=== PATIENT | female | born 2000 | race Caucasian/White ===

== ENCOUNTER → 2025-01-07 | Outpatient (CLI) | payer MEDICAID, SELFPAY ==
--- NOTE | 2025-01-07 19:10 | MRI_ITS ---
EXAM: Noncontrast MRI of the left knee. CLINICAL HISTORY: History of fall 2022. Left knee pain and instability. Prior ACL reconstruction 2019 and meniscal repair 2017. COMPARISON: No prior studies are available. TECHNIQUE: Multi planar, multisequence MRI images of the left knee were obtained without IV contrast. FINDINGS: The patellar ligament and included distal quadriceps tendon are intact. Fine bony detail is limited on this study. There is magnetic susceptibility artifact from ACL graft anchor in the proximal tibia. No acute fracture or dislocation of the left knee. No sizeable joint effusion. The collateral and posterior cruciate ligaments are intact. Evaluation of the ACL graft is limited on this study. There do appear to be some intact fibers of the ACL graft. No loose intra-articular body. No focal high-grade chondral defect or osteochondral lesion. No evidence of transient patellar dislocation. The patellar retinacula and popliteus muscle/tendon are intact. No soft tissue mass or drainable fluid collection of the left knee. No definite discrete meniscal tear. No flipped meniscal fragment. MRI/Lower Ext Joint Only (Routine) IMPRESSION: No acute bony abnormality of the left knee. No sizeable joint effusion. There appear to be some intact fibers of the ACL graft, although evaluation is limited on this examination. The remaining major ligamentous structures appear intact. No discrete meniscal tear or flipped meniscal fragment. No focal high-grade chondral defect or osteochondral lesion. [facility]
== END | disposition home or self-care (01) ==
PROVIDERS: PCP Nurse Practitioner Family; Referring Provider Nurse Practitioner Family; Visit Provider Nurse Practitioner Family
DX: M23.52 Chronic instability of knee, left knee (principal)
CPT/HCPCS: 73721

== ENCOUNTER 2025-03-13 13:00 | Outpatient (RCR) | payer MEDICAID, SELFPAY ==
--- NOTE | 2025-01-23 18:05 | HP.PTEVAL ---
Patient's Visit Information Visit Information Visit Information: FEDERICO MCRAE is a 24 year old F referred to Physical Therapy by REGIS Nielson with a diagnosis of INSTABILITY ,LEFT KNEE. Date of Evaluation: 01/23/25 Physical Therapist: Sriram Bradley, PT, Cert MDT, OCS Visit Plan Frequency: 2x /Week Duration: 4 Weeks Plan: LATEX ALLERGY: PRECAUTION PT INTERVENTIONS STRENGTHENING QUADS/HAMS/HIP ,CLOSED CHAIN QUADS,PROPRIOCEPTION ,FUNCTIONAL STRENGTHENING AND MODALITIES Subjective Subjective: This 24 y/o female presents to physical therapy with left knee instability. Patient has has h/o ACL reconstruction Oct 05 2020 .Prior to arthroscopy meniscectomy Most recently pain worse 1 year later and progressively worse over next 5 years . Patient reports knee feels as though shifting when walking. Pain located global anterior posterior.Patient has MRI but unable to read due to anchors . Patient seen INS[employer]OR [employer] recommended PT and recommend DR Ruiz after PT started . Medication naproxen .Aggravating factors squatting ,pivoting ,stairs ,kneeling . Alleviating rest meds. Denies paresthesia/tingling . Sleeping good. Prior PT ~ 4 years ago . No exercising. Patient condition affects QOL and function /work demands. 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 Pain Right: Pain Intensity (Out of 10): 5 Pain Intensity Range: 9 and 10 Right Knee: Pain Intensity (Out of 10): 5 Pain Intensity Range: 10 Objective Objective: POSTURE: knee valgus ,genu recurvatum GAIT: reciprocal pattern PALPATION: tender medial joint line ,tender patella NEURO: denies paresthesia/tingling AROM: 0-125 Degrees supine knee flexion MMT: ( peak force) left quads 12.6 ,hamstrings 11.2 ,hip abduction 13.7 ,hip flexion 18.3 ,ankle 4/5 PROPRIOCEPTION: intact FLEXABILITY: HAMSTRINGS WFL +Squatting pain Special Tests L Knee Evan - Meniscus: Negative L Knee Anterior Drawer - ACL: Negative L Knee Posterior Drawer - PCL: Negative L Knee Posterior Sag - PCL: Negative L Knee Valgus - MCL: Negative L Knee Varus - LCL: Negative L Knee Patellar Apprehension - PFS: Positive L Knee Patellar Grind - PFS: Positive Balance/Special Test Scores Lower Extremity Functional Score: 43 Goals Goal 1:: Patient to be I with HEP for knee Goal Time Frame: 4-6 Weeks Goal 2:: Patient to improve peak force quads/hams/hip by 10# strength to improve gait Goal Time Frame: 4-6 Weeks Goal 3:: Patient to improve LFES score by 5 points to improve QOL Goal Time Frame: 4-6 Weeks Goal 4:: Patient to demonstrate 50% improvement with less pain and improved function Goal Time Frame: 4-6 Weeks Goal 5:: Patient be able to perform ADLS and housework tasks squatting stairs min limitations Goal Time Frame: 4-6 Weeks Rehabilitation Potential Physical Therapy Diagnosis: This patient has left knee pain and has h/o ACL reconstruction 2019 with current impairments with pain ,weakness , pain with function activity with squats stairs MRI was inclusive thus benefit from skilled PT Rehabilitation Potential: Good Anticipated Interventions Patient/Client Instruction: Educate patient on: Condition and Plan of Care For the Purpose of:: To decrease pain, To improve muscle performance and motor function, To improve ability to perform ADL's, To increase tolerance to activity/condition/position, To improve ability of physical actions for home/community/work/leisure, To improve health of tissue, To decrease soft tissue restriction, To increase flexibility/ROM, To improve balance and To improve tolerance to ADL's Therapeutic Exercise to Include: Strength training, Endurance training, Balance training, Flexibilty training and Active ROM Comment: QUADS/HAMS/HIP For the Purpose of:: To decrease pain, To increase ROM, To improve muscle performance and motor function, To improve ability to perform ADL's, To increase tolerance to activity/condition/position, To improve ability of physical actions for home/community/work/leisure, To improve health of tissue, To decrease soft tissue restriction, To improve endurance, To improve balance, To reduce risk of recurrence and To improve tolerance to ADL's TENS: Yes IF ES: Yes Cryotherapy (ice pack, ice massage): Yes Thermo therapy (hot pack): Yes Ultrasound (thermal/non thermal): Yes For the Purpose of:: To decrease pain Text: Thank you for the opportunity to evaluate your patient. For Medicare and Medicare HMO plans, please review the plan of care and approve it. It will need to be FAXED BACK to us at [phone] for Medicare purposes. For Medicare only, by signing this I certify the plan of care. Please let me know if there are questions or concerns regarding this plan of care. Physician Signature: Date:
--- NOTE | 2025-03-13 13:27 | HP.PTREVAL ---
Re-Evaluation Intro: Kay Sue, ITZEL-C, It has been my pleasure to treat FEDERICO MCRAE over the last 10 visits for INSTABILITY ,LEFT KNEE. Please see the progress note below for an update on the physical therapy plan of care! Subjective Subjective: Seen DR Provided new brace custom Wants to cont with PT and return in 2-3months Patient reports conts to occasionally give way or shift Objective Objective/Function: Patient will continue to benefit from skilled PT w/o surgical interventions with knee occasionally gives way and shifts thus benefit from skilled PT POSTURE: knee valgus ,genu recurvatum GAIT: reciprocal pattern PALPATION: tender medial joint line ,tender patella NEURO: denies paresthesia/tingling AROM: 0-125 Degrees supine knee flexion MMT: ( peak force) left quads 36.8 ,hamstrings 25.6 ,hip abduction 18.7 ,hip flexion 24.7 ,ankle 4/5 PROPRIOCEPTION: intact FLEXABILITY: HAMSTRINGS WFL Plan Plan Plan: Requesting 10 more visits LATEX ALLERGY: PRECAUTION PT INTERVENTIONS STRENGTHENING QUADS/HAMS/HIP ,CLOSED CHAIN QUADS,PROPRIOCEPTION ,FUNCTIONAL STRENGTHENING AND MODALITIES Balance/Gait/Functional tests Balance/Special Test Scores Lower Extremity Functional Score: 43 Goals Goals Goal 1:: Patient to be I with HEP for knee Goal Time Frame: 4-6 Weeks Goal Progress: Progressing Goal 2:: Patient to improve peak force quads/hams/hip by 10# strength to improve gait Goal Time Frame: 4-6 Weeks Goal Progress: Progressing Goal 3:: Patient to improve LFES score by 5 points to improve QOL Goal Time Frame: 4-6 Weeks Goal Progress: Progressing Goal 4:: Patient to demonstrate 50% improvement with less pain and improved function Goal Time Frame: 4-6 Weeks Goal Progress: Progressing Goal 5:: Patient be able to perform ADLS and housework tasks squatting stairs min limitations Goal Time Frame: 4-6 Weeks Goal Progress: Progressing Anticipated Interventions Anticipated Interventions Patient/Client Instruction: Educate patient on: Condition and Plan of Care For the Purpose of:: To decrease pain, To improve muscle performance and motor function, To improve ability to perform ADL's, To increase tolerance to activity/condition/position, To improve ability of physical actions for home/community/work/leisure, To improve health of tissue, To decrease soft tissue restriction, To increase flexibility/ROM, To improve balance and To improve tolerance to ADL's Therapeutic Exercise to Include: Strength training, Endurance training, Balance training, Flexibilty training and Active ROM Comment: QUADS/HAMS/HIP For the Purpose of:: To decrease pain, To increase ROM, To improve muscle performance and motor function, To improve ability to perform ADL's, To increase tolerance to activity/condition/position, To improve ability of physical actions for home/community/work/leisure, To improve health of tissue, To decrease soft tissue restriction, To improve endurance, To improve balance, To reduce risk of recurrence and To improve tolerance to ADL's TENS: Yes IF ES: Yes Cryotherapy (ice pack, ice massage): Yes Thermo therapy (hot pack): Yes Ultrasound (thermal/non thermal): Yes For the Purpose of:: To decrease pain Re-Evaluation Ending Re-evaluation ending: Please do not hesitate to contact me at [phone] by phone or if you have questions or concerns regarding this new plan of care! Sincerely, Sriram Bradley, PT, Cert MDT, OCS
--- NOTE | 2025-06-24 18:18 | HP.PTDCSUM ---
Discharge Summary D/C summary: It has been my pleasure to treat FEDERICO MCRAE referred by Kay Sue NP-C, with the diagnosis of INSTABILITY ,LEFT KNEE for a total of 10 visit(s). Discharge Date: Please see the following information for a summary of their discharge status. Subjective Subjective: Seen DR Provided new brace custom Wants to cont with PT and return in 2-3months Patient reports conts to occasionally give way or shift Pain Right: Pain Intensity (Out of 10): 5 Right Knee: Pain Intensity (Out of 10): 5 Left knee: Pain Intensity (Out of 10): 4 Overall Improvement % Improvement: 10 Objective Objective/Function: Patient will continue to benefit from skilled PT w/o surgical interventions with knee occasionally gives way and shifts thus benefit from skilled PT POSTURE: knee valgus ,genu recurvatum GAIT: reciprocal pattern PALPATION: tender medial joint line ,tender patella NEURO: denies paresthesia/tingling AROM: 0-125 Degrees supine knee flexion MMT: ( peak force) left quads 36.8 ,hamstrings 25.6 ,hip abduction 18.7 ,hip flexion 24.7 ,ankle 4/5 PROPRIOCEPTION: intact FLEXABILITY: HAMSTRINGS WFL Goals Goal 1:: Patient to be I with HEP for knee Goal Progress: Progressing Goal 2:: Patient to improve peak force quads/hams/hip by 10# strength to improve gait Goal Progress: Progressing Goal 3:: Patient to improve LFES score by 5 points to improve QOL Goal Progress: Progressing Goal 4:: Patient to demonstrate 50% improvement with less pain and improved function Goal Progress: Progressing Goal 5:: Patient be able to perform ADLS and housework tasks squatting stairs min limitations Goal Progress: Progressing Plan Plan: Requesting 10 more visits LATEX ALLERGY: PRECAUTION PT INTERVENTIONS STRENGTHENING QUADS/HAMS/HIP ,CLOSED CHAIN QUADS,PROPRIOCEPTION ,FUNCTIONAL STRENGTHENING AND MODALITIES D/C Information d/c sentence: If there are questions or concerns regarding this patient's physical therapy, please feel free to call me at [phone]. Thank you for the referral of this patient. Sincerely, Sriram Bradley, PT, Cert MDT, OCS Balance/Gait/Functional tests Balance/Special Test Scores Lower Extremity Functional Score: 43 Improvement % Improvement: 10
== END 2025-03-13 19:00 | disposition home or self-care (01) ==
LOC: PT 13:00
PROVIDERS: PCP Nurse Practitioner Family; Referring Provider Nurse Practitioner Family; Visit Provider Nurse Practitioner Family
DX: M25.362 Other instability, left knee (principal); Z98.890 Other specified postprocedural states
CPT/HCPCS: 97110; 97162; 97530